=== PATIENT | female | born 1950 ===

== ENCOUNTER 2018-02-16 15:05 | Inpatient (IN) | payer MEDICARE, OTHER ==
[~2018-02-16] VITALS: Ht 152.4 cm; Wt 54.6 kg
[2018-02-16 16:04] VITALS: BP 134/85
[2018-02-16] MEDS ORDERED: MELO15TA23 PO (16:52)
[2018-02-16] MEDS ORDERED: SITA50TA PO (16:52)
[2018-02-16] MEDS ORDERED: ESTR1TAB13 PO (16:52)
[2018-02-16] MEDS ORDERED: LEVE10007 PO (16:52)
[2018-02-16] MEDS ORDERED: GABA600T2 PO (16:52)
[2018-02-16] MEDS ORDERED: CLON1TAB4 PO (16:52)
[2018-02-16] MEDS ORDERED: DULO60CA6 PO (16:52)
[2018-02-16] MEDS ORDERED: GABA800T2 PO (16:52)
[2018-02-16] MEDS ORDERED: CETI10CA PO (16:52)
[2018-02-16] MEDS ORDERED: ROPI0.5T PO (16:52)
[2018-02-16] MEDS ORDERED: BACL10TA PO (16:52)
[2018-02-16] MEDS ORDERED: MECL25TA3 PO (16:52)
[2018-02-16] MEDS ORDERED: ACET325T9 PO (16:52)
[2018-02-16] MEDS ORDERED: METF500T9 PO (16:52)
[2018-02-16] MEDS ORDERED: FLUT9.9S NS (16:52)
[2018-02-16] MEDS ORDERED: OMEP20TA63 PO (16:52)
[2018-02-16] MEDS ORDERED: SIMV20TA3 PO (16:52)
[2018-02-16] MEDS ORDERED: POLY17PO5 PO (16:52)
[2018-02-16] MEDS ORDERED: TOPI50TA8 PO (16:52)
[2018-02-16] MEDS ORDERED: POLYETHYLENE GLYCOL 3350 17 GM PACKET. PO PRN (17:00)
[2018-02-16] MEDS: GABAPENTIN 300 MG CAPSULE. PO SCH (17:00)
[2018-02-16] MEDS ORDERED: MAG HYDROX/AL HYDROX/SIMETH 30 ML ORAL.SUSP PO PRN (17:15)
[2018-02-16] MEDS ORDERED: MAGNESIUM HYDROXIDE 2,400 MG/30 ML ORAL.SUSP. PO PRN (17:15)
[2018-02-16] MEDS ORDERED: METHYL SALICYLATE/MENTHOL TOPICAL OINTMENT 29GM TUBE. TP PRN (17:15)
[2018-02-16 17:45] LABS: BASO % 1 % (0-3); EOS # 0.2 x10^3/uL (0.0-0.7); EOS % 3 % (0-3); HEMATOCRIT 38.9 % (36.0-47.0); HEMOGLOBIN 12.8 g/dL (12.0-15.5); LYMPH # 2.4 x10^3/uL (1.0-4.8); LYMPH % 37 % (24-48); MEAN CORPUSCULAR HEMOGLOBIN 30 pg (25-35); MEAN CORPUSCULAR HGB CONC 33 g/dL (31-37); MEAN CORPUSCULAR VOLUME 92 fL (79-100); MONO # 0.4 x10^3/uL (0.0-1.1); MONO % 6 % (0-9); NEUT # 3.6 x10^3uL (1.8-7.7); NEUT % 55 % (31-73); PLATELET COUNT 276 x10^3/uL (140-400); RED BLOOD COUNT 4.23 x10^6/uL (3.50-5.40); RED CELL DISTRIBUTION WIDTH 13.8 % (11.5-14.5); WHITE BLOOD COUNT 6.5 x10^3/uL (4.0-11.0)
[2018-02-16 17:56] LABS: ALBUMIN 3.6 g/dL (3.4-5.0); CALCIUM 8.9 mg/dL (8.5-10.1); CREATININE 1.4 mg/dL (0.6-1.0); GFR 37.6; MAGNESIUM 1.8 mg/dL (1.8-2.4); TOTAL BILIRUBIN 0.2 mg/dL (0.2-1.0); TOTAL PROTEIN 7.2 g/dL (6.4-8.2)
[2018-02-16] MEDS: levETIRAcetam 500 MG TABLET PO SCH (19:57)
[2018-02-16] MEDS: SIMVASTATIN 20 MG TABLET PO SCH (19:57)
[2018-02-16] MEDS: FLUTICASONE 50MCG/NASAL SPRAY 16GM BOTTLE. NS SCH (19:58)
[2018-02-16] MEDS: rOPINIRole 1 MG TABLET. PO SCH (19:58)
[2018-02-16] MEDS: GABAPENTIN 400 MG CAPSULE. PO SCH (19:58)
[2018-02-16] MEDS: MECLIZINE 12.5 MG TABLET. PO SCH (19:58)
[2018-02-16] MEDS: clonazePAM 1 MG TABLET PO SCH (19:58)
[2018-02-16] MEDS ORDERED: GABAPENTIN 300 MG CAPSULE. PO SCH (21:00)
[2018-02-17 06:23] VITALS: BP 121/76
[2018-02-17] MEDS: levETIRAcetam 500 MG TABLET PO SCH ×2 (07:29→20:11)
[2018-02-17] MEDS: rOPINIRole 1 MG TABLET. PO SCH ×3 (07:30→20:12)
[2018-02-17] MEDS: MECLIZINE 12.5 MG TABLET. PO SCH ×2 (07:32→20:11)
[2018-02-17] MEDS: GABAPENTIN 300 MG CAPSULE. PO SCH ×3 (07:32→18:01)
[2018-02-17] MEDS: DULoxetine HCL 60 MG CAPSULE.DR PO SCH (07:36)
[2018-02-17] MEDS: MELOXICAM 15 MG TABLET. PO SCH (07:36)
[2018-02-17] MEDS: LINAGLIPTIN 5 MG TABLET PO SCH (07:36)
[2018-02-17] MEDS: PANTOPRAZOLE 40 MG TABLET. PO SCH (07:36)
[2018-02-17] MEDS: TOPIRAMATE 25 MG TABLET. PO SCH (07:37)
[2018-02-17] MEDS: CETIRIZINE HCL 10 MG TABLET PO SCH (07:37)
[2018-02-17] MEDS: BACLOFEN 10 MG TABLET PO SCH (07:37)
[2018-02-17] MEDS: NORETHINDRONE ACET PO SCH (07:38)
[2018-02-17] MEDS: ESTRADIOL PO SCH (07:38)
[2018-02-17] MEDS: metFORMIN XR 500 MG TAB.ER.24H PO SCH (07:39)
[2018-02-17] MEDS: FLUTICASONE 50MCG/NASAL SPRAY 16GM BOTTLE. NS SCH ×2 (09:00→20:12)
[2018-02-17] MEDS: ACETAMINOPHEN 325 MG TABLET PO PRN ×2 (11:29→18:00)
[2018-02-17 12:08] LABS: THYROXINE 6.3 ug/dL (4.5-12.0)
[2018-02-17 16:37] VITALS: BP 151/82
[2018-02-17] MEDS: SIMVASTATIN 20 MG TABLET PO SCH (20:11)
[2018-02-17] MEDS: clonazePAM 1 MG TABLET PO SCH (20:11)
[2018-02-17] MEDS: GABAPENTIN 400 MG CAPSULE. PO SCH (20:12)
--- NOTE | 2018-02-17 21:24 | CONS ---
DATE OF CONSULTATION: 02/17/2018 REASON FOR CONSULTATION: Medical management. HISTORY OF PRESENT ILLNESS: The patient is a 67-year-old female patient, who was referred from [facility] Emergency Room where she has presented with suicidal ideation and a complaint of depression. She stated that she is sad and plans to kill herself, although she does not have any specific time being. By the time, she arrived there, she was in fact brought to the Emergency Room by police from the [facility]. She lives in [facility], who apparently her insurance will pay only for a room with a roommate and she could not have a private room on her own. She does not like her roommate and made this a suicidal threat. She was evaluated in the Emergency Room and she signed herself [facility] for [facility] stabilization. PAST MEDICAL HISTORY: Significant for trochanteric bursitis, chronic back pain, type 2 diabetes with diabetic peripheral neuropathy, degenerative joint disease, fibromyalgia, gastroesophageal reflux disease, hyperlipidemia, and rheumatoid arthritis. PAST SURGICAL HISTORY: Significant for esophagogastroduodenoscopy, left total hip arthroplasty, breast biopsy, jaw surgery, left wrist surgery, dilatation of the ureteral stricture and diskectomy as well as bilateral cataract extraction. FAMILY HISTORY: Her father is and known to have cerebrovascular accident, COPD, chronic kidney disease, Alzheimer's disease. Her mother and has also breast cancer, and Parkinson disease. SOCIAL HISTORY: She used to live alone in an apartment, walks with a walker. She apparently does not smoke, does not drink alcohol or recreational drugs. She has no children, but she has a cat according to her. ALLERGIES: She has no known drug allergies. MEDICATIONS: She is currently on following medications: She is on cetirizine 10 mg once a day, baclofen 10 mg daily, simvastatin 20 mg at bedtime, meloxicam 15 mg once a day, Tylenol 650 mg every 4 hours, clonazepam 1 mg at bedtime, gabapentin 800 mg at bedtime and gabapentin 600 mg 3 times a day and levetiracetam for Keppra 1500 mg twice a day, topiramate 50 mg once a day, duloxetine 60 mg daily, allopurinol 1.5 mg 3 times a day. She is on Flonase 2 sprays to each nostril twice a day, polyethylene glycol 17 grams daily p.r.n. for constipation, meclizine 25 mg p.o. b.i.d., omeprazole 40 mg once a day, estrogen for Activella. She is on metformin 1000 mg daily with breakfast, and Sitagliptin Phosphate 50 mg once a day. REVIEW OF SYSTEMS: The patient denied any blurring of vision. She has bilateral cataract extraction, but denied any glaucoma or macular degeneration. Denied any earache, tinnitus or sensorineural deafness. Denied any nosebleeds, stuffy nose or postnasal drip. Denied any sore throat, sore tongue, toothache, or difficulty swallowing. Denied any nausea, vomiting, diarrhea or constipation. Denied any hematemesis, melena or hematochezia. Denied any dysuria, frequency or hematuria. PHYSICAL EXAMINATION: GENERAL: When I examined her, she was resting slightly propped up in bed, in no apparent respiratory distress. No pallor, jaundice or cyanosis. No lymphadenopathy, no thyromegaly. No jugular venous distention. No limb edema. VITAL SIGNS: Her heart rate was 60, blood pressure was 121/76, temperature was 98.9, respiratory rate was 16, and oxygen saturation was 98%. HEAD, EYES, EARS, NOSE, AND THROAT: Showed she is normocephalic, atraumatic. NECK: Supple. HEART: Showed normal first and second heart sounds. No gallop, rub or murmur. CHEST: Clear to auscultation. No crepitation or rhonchi. ABDOMEN: Distended, soft, nontender. NEUROLOGIC: She is awake, alert, responding appropriately. All her cranial nerves intact. EXTREMITIES: She moves extremities without difficulty. LABORATORY DATA: Her lab work showed a white cell count of 6500, hemoglobin 13, hematocrit 39, MCV 92, and platelet count of 276,000. Her chemistry showed a serum sodium 141, potassium 4, chloride 110, bicarbonate 18, anion gap of 13, BUN 17, creatinine 1.4, estimated GFR was 37 mL per minute. Her glucose 141, calcium was 8.9, and magnesium was 1.8. Total bilirubin, AST, ALT, alkaline phosphatase were normal. Her total protein was 7.2, albumin 3.6. Her total T4 was 6.3 and total T3 was 98. ASSESSMENT AND PLAN: In summary, this is a 67-year-old female patient, a resident at [facility], who signed herself and she severely depressed and voiced suicidal ideation. She stated that she wants to kill herself, although she does not have a clear plan to do so. She is apparently known to have depression, fibromyalgia and mild dementia. She has multiple medical problems including type 2 diabetes, hypertension, and hyperlipidemia. She also has seizure disorder as well as diabetic peripheral neuropathy. All in all, the patient seemed to be medically stable. Her vital signs are within acceptable range. Her lab works are normal apart from slightly impaired kidney function. I would definitely continue with all her current medication and we will follow all the labs that are still pending at the time of this dictation and make any necessary recommendation. Thank you, Dr. Bardales for allowing me to participate in the care of this patient. PRINCESS NI MD DR: CORBY/noel JOB#: [id number] / [id number]
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
[2018-02-18 06:17] VITALS: BP 129/79
[2018-02-18] MEDS: TOPIRAMATE 25 MG TABLET. PO SCH (08:05)
[2018-02-18] MEDS: PANTOPRAZOLE 40 MG TABLET. PO SCH (08:06)
[2018-02-18] MEDS: levETIRAcetam 500 MG TABLET PO SCH ×2 (08:06→19:22)
[2018-02-18] MEDS: BACLOFEN 10 MG TABLET PO SCH (08:06)
[2018-02-18] MEDS: MECLIZINE 12.5 MG TABLET. PO SCH ×2 (08:06→19:22)
[2018-02-18] MEDS: rOPINIRole 1 MG TABLET. PO SCH ×3 (08:07→19:22)
[2018-02-18] MEDS: metFORMIN XR 500 MG TAB.ER.24H PO SCH (08:07)
[2018-02-18] MEDS: GABAPENTIN 300 MG CAPSULE. PO SCH ×3 (08:07→17:34)
[2018-02-18] MEDS: CETIRIZINE HCL 10 MG TABLET PO SCH (08:07)
[2018-02-18] MEDS: DULoxetine HCL 60 MG CAPSULE.DR PO SCH (08:07)
[2018-02-18] MEDS: LINAGLIPTIN 5 MG TABLET PO SCH (08:08)
[2018-02-18] MEDS: MELOXICAM 15 MG TABLET. PO SCH (08:18)
[2018-02-18] MEDS: FLUTICASONE 50MCG/NASAL SPRAY 16GM BOTTLE. NS SCH ×2 (08:19→19:25)
[2018-02-18] MEDS: NORETHINDRONE ACET PO SCH (09:00)
[2018-02-18] MEDS: ESTRADIOL PO SCH (09:00)
[2018-02-18 09:09] LABS: THYROID STIM HORMONE (TSH) 3.14 uIU/mL (0.358-3.740)
[2018-02-18] MEDS: ACETAMINOPHEN 325 MG TABLET PO PRN ×2 (11:14→19:23)
[2018-02-18 16:30] VITALS: BP 116/75
[2018-02-18] MEDS: GABAPENTIN 400 MG CAPSULE. PO SCH (19:21)
[2018-02-18] MEDS: SIMVASTATIN 20 MG TABLET PO SCH (19:21)
[2018-02-18] MEDS: clonazePAM 1 MG TABLET PO SCH (19:25)
[2018-02-18 23:11] LABS: HEMOGLOBIN A1C 7.3 % (4.8-5.6)
[2018-02-19 05:38] VITALS: BP 104/69
[2018-02-19] MEDS: ESTRADIOL PO SCH (09:00)
[2018-02-19] MEDS: NORETHINDRONE ACET PO SCH (09:00)
[2018-02-19] MEDS: metFORMIN XR 500 MG TAB.ER.24H PO SCH (09:47)
[2018-02-19] MEDS: DULoxetine HCL 60 MG CAPSULE.DR PO SCH (09:47)
[2018-02-19] MEDS: GABAPENTIN 300 MG CAPSULE. PO SCH ×3 (09:47→17:56)
[2018-02-19] MEDS: LINAGLIPTIN 5 MG TABLET PO SCH (09:48)
[2018-02-19] MEDS: rOPINIRole 1 MG TABLET. PO SCH ×3 (09:48→19:28)
[2018-02-19] MEDS: levETIRAcetam 500 MG TABLET PO SCH ×2 (09:48→19:27)
[2018-02-19] MEDS: MECLIZINE 12.5 MG TABLET. PO SCH ×2 (09:48→19:27)
[2018-02-19] MEDS: PANTOPRAZOLE 40 MG TABLET. PO SCH (09:49)
[2018-02-19] MEDS: MELOXICAM 15 MG TABLET. PO SCH (09:49)
[2018-02-19] MEDS: TOPIRAMATE 25 MG TABLET. PO SCH (09:49)
[2018-02-19] MEDS: BACLOFEN 10 MG TABLET PO SCH (09:49)
[2018-02-19] MEDS: CETIRIZINE HCL 10 MG TABLET PO SCH (09:49)
[2018-02-19] MEDS: FLUTICASONE 50MCG/NASAL SPRAY 16GM BOTTLE. NS SCH ×2 (09:50→19:26)
--- NOTE | 2018-02-19 10:44 | PDOC ---
Exam Note: Juan C Note: Please also refer to the separate dictated note~for this date of service dictated separately.~Patient seen individually. Discussed the patient with Nursing staff reviewed the chart.~Reviewed interim history and current functioning. Reviewed vital signs,~Labs/ Radiology~and current medications noted below. Continue current treatment with the changes noted in the dictated addendum note. This is a late entry for 02/18/2018 Assessment: Vital Signs: VS - Last 72 Hours, by Label Date Time Temp Pulse Resp B/P (MAP) Pulse Ox O2 Delivery O2 Flow Rate FiO2 02/19/18 05:38 98.2 61 18 104/69 (81) 97 02/18/18 16:30 97.4 61 18 116/75 (89) 98 Room Air 02/18/18 06:17 97.8 63 14 129/79 (96) 100 Room Air 02/17/18 16:37 98.0 70 16 151/82 (105) 97 02/17/18 06:23 98.9 60 16 121/76 (91) 98 Room Air 02/16/18 16:04 98.4 70 16 134/85 (101) 99 Room Air Vital Signs Date Time Temp Pulse Resp B/P (MAP) Pulse Ox O2 Delivery O2 Flow Rate FiO2 02/19/18 05:38 98.2 61 18 104/69 (81) 97 02/18/18 16:30 Room Air I&O Intake and Output 02/19/18 07:00 Intake Total 660 ml Balance 660 ml Intake Oral 660 ml # Bowel Movements 1 Current Medications: Meds: Current Medications Acetaminophen (Tylenol) 325 mg PRN Q4HRS PRN PO PAIN / TEMP Last administered on 02/18/18at 19:23; Start 02/16/18 at 16:15 Baclofen (Lioresal) 10 mg DAILY PO Last administered on 02/19/18at 09:49; Start 02/17/18 at 09:00 Cetirizine HCl (ZyrTEC) 10 mg DAILY PO Last administered on 02/19/18at 09:49; Start 02/17/18 at 09:00 Clonazepam (KlonoPIN) 1 mg QHS PO Last administered on 02/18/18at 19:25; Start 02/16/18 at 21:00 Duloxetine HCl (Cymbalta) 60 mg DAILY PO Last administered on 02/19/18 09:47 ; Start 02/17/18 at 09:00 Non-Formulary Medication (Estradiol/ Norethindrone Acet (Activella 0.5-0.1 Mg Tablet)) 1 tab DAILY PO ; Start 02/17/18 at 09:00; Status UNV Fluticasone Propionate (Flonase) 2 spray BID NS Last administered on 09:50; Start 02/16/18 at 21:00 Gabapentin (Neurontin) 600 mg TID PO ; Start 02/16/18 at 21:00; Stop 02/16/18 at 21:00; Status DC Gabapentin (Neurontin) 800 mg QHS PO Last administered on 02/18/18 19:21; Start 02/16/18 at 21:00 Levetiracetam (Keppra) 1,500 mg BID PO Last administered on 02/19/18 09:48; Start 02/16/18 at 21:00 Meclizine HCl (Antivert) 25 mg BID PO Last administered on 02/19/18 09:48; Start 02/16/18 at 21:00 Meloxicam (Mobic) 15 mg DAILY PO Last administered on 02/19/18 09:49; Start 02/17/18 at 09:00 Metformin HCl (Glucophage Xr) 1,000 mg DAILYWBKFT PO Last administered on 02/19 09:47; Start 02/17/18 at 08:00 Pantoprazole Sodium (Protonix) 40 mg DAILYAC PO Last administered on 09:49; Start 02/17/18 at 07:30 Polyethylene Glycol (miraLAX) 17 gm PRN DAILY PRN PO CONSTIPATION; Start 02/16 at 17:00 Ropinirole HCl (Requip) 1.5 mg TID PO Last administered on 02/19/18 09:48; Start 02/16/18 at 21:00 Simvastatin (Zocor) 20 mg HS PO Last administered on 02/18/18 19:21; Start 02/16/18 at 21:00 Linagliptin (Tradjenta) 5 mg DAILY PO Last administered on 02/19/18 09:48; Start 02/17/18 at 09:00 Topiramate (Topamax) 50 mg DAILY PO Last administered on 02/19/18at 09:49; Start 02/17/18 at 09:00 Gabapentin (Neurontin) 600 mg TID@0900,1300,1700 PO Last administered on at 09:47; Start 02/16/18 at 17:00 Multi-Ingredient Ointment (Analgesic [place]) 1 iesha PRN QID PRN TP MUSCLE PAIN; Start 02/16/18 at 17:15 Al Hydroxide/Mg Hydroxide (Mylanta Plus Xs) 15 ml PRN AFTMEALHC PRN PO DYSPEPSIA; Start 02/16/18 at 17:15 Magnesium Hydroxide (Milk Of Magnesia) 2,400 mg PRN QHS PRN PO CONSTIPATION; Start 02/16/18 at 17:15 Active Scripts Active Reported Miralax (Polyethylene Glycol 3350) 17 Gm Powd.pack 17 Gm PO PRN DAILY PRN Tylenol (Acetaminophen) 325 Mg Tablet 325 Mg PO PRN Q4HRS PRN Topiramate 50 Mg Tablet 50 Mg PO DAILY Januvia (Sitagliptin Phosphate) 50 Mg Tablet 50 Mg PO DAILY Simvastatin 20 Mg Tablet 20 Mg PO HS Requip (Ropinirole Hcl) 0.5 Mg Tablet 1.5 Mg PO TID Prilosec Otc (Omeprazole Magnesium) 20 Mg Tablet.dr 40 Mg PO DAILY Metformin Hcl Er (Metformin Hcl) 500 Mg Tab.er.24h 1,000 Mg PO DAILYWBKFT Meloxicam 15 Mg Tablet 15 Mg PO DAILY Meclizine Hcl 25 Mg Tablet 25 Mg PO BID Levetiracetam 1,000 Mg Tablet 1,500 Mg PO BID Gabapentin 600 Mg Tablet 600 Mg PO TID Gabapentin 800 Mg Tablet 800 Mg PO HS Flonase Allergy Relief (Fluticasone Propionate) 9.9 Ml [place].susp 2 Sprays NS BID Activella 0.5-0.1 Mg Tablet (Estradiol/Norethindrone Acet) 1 Each Tablet 1 Tab PO DAILY Cymbalta (Duloxetine Hcl) 60 Mg Capsule.dr 60 Mg PO DAILY Clonazepam 1 Mg Tablet 1 Mg PO HS Zyrtec (Cetirizine Hcl) 10 Mg Capsule 10 Mg PO DAILY Baclofen 10 Mg Tablet 10 Mg PO DAILY I have reviewed the current psychotropics carefully including drug interactions. Risk benefit ratio favors no change other than as noted in my dictated progress note. Diagnosis: Problems: (1) Impulse control disorder (2) Major depressive disorder, recurrent episode (3) Anxiety disorder NUBIA STILES MD Feb 19, 2018 10:44
[2018-02-19 16:10] VITALS: BP 108/69
[2018-02-19] MEDS: busPIRone 5 MG TABLET. PO SCH (17:56)
[2018-02-19] MEDS: SIMVASTATIN 20 MG TABLET PO SCH (19:27)
[2018-02-19] MEDS: GABAPENTIN 400 MG CAPSULE. PO SCH (19:28)
[2018-02-19] MEDS: clonazePAM 1 MG TABLET PO SCH (19:29)
[2018-02-20 06:06] VITALS: BP 116/71
[2018-02-20] MEDS: metFORMIN XR 500 MG TAB.ER.24H PO SCH (08:00)
[2018-02-20] MEDS: MECLIZINE 12.5 MG TABLET. PO SCH ×2 (08:01→19:43)
[2018-02-20] MEDS: MELOXICAM 15 MG TABLET. PO SCH (08:01)
[2018-02-20] MEDS: BACLOFEN 10 MG TABLET PO SCH (08:01)
[2018-02-20] MEDS: levETIRAcetam 500 MG TABLET PO SCH ×2 (08:02→19:46)
[2018-02-20] MEDS: busPIRone 5 MG TABLET. PO SCH ×2 (08:02→16:57)
[2018-02-20] MEDS: DULoxetine HCL 60 MG CAPSULE.DR PO SCH (08:03)
[2018-02-20] MEDS: PANTOPRAZOLE 40 MG TABLET. PO SCH (08:03)
[2018-02-20] MEDS: CETIRIZINE HCL 10 MG TABLET PO SCH (08:03)
[2018-02-20] MEDS: LINAGLIPTIN 5 MG TABLET PO SCH (08:03)
[2018-02-20] MEDS: rOPINIRole 1 MG TABLET. PO SCH ×3 (08:04→19:43)
[2018-02-20] MEDS: GABAPENTIN 300 MG CAPSULE. PO SCH ×3 (08:05→16:58)
[2018-02-20] MEDS: ESTRADIOL PO SCH (08:05)
[2018-02-20] MEDS: NORETHINDRONE ACET PO SCH (08:05)
[2018-02-20] MEDS: TOPIRAMATE 25 MG TABLET. PO SCH (08:05)
[2018-02-20] MEDS: FLUTICASONE 50MCG/NASAL SPRAY 16GM BOTTLE. NS SCH ×2 (08:06→19:42)
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
[2018-02-20] MEDS: ACETAMINOPHEN 325 MG TABLET PO PRN (12:46)
[2018-02-20 16:12] VITALS: BP 147/87
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
[2018-02-20] MEDS: SIMVASTATIN 20 MG TABLET PO SCH (19:43)
[2018-02-20] MEDS: GABAPENTIN 400 MG CAPSULE. PO SCH (19:43)
[2018-02-20] MEDS: clonazePAM 1 MG TABLET PO SCH (19:46)
--- NOTE | 2018-02-20 21:20 | PDOC ---
Exam Note: Jua nC Note: Late entry for DOS 02/19/2018. Please also refer to the separate dictated note~ for this date of service dictated separately.~Patient seen individually. Discussed the patient with Nursing staff reviewed the chart.~Reviewed interim history and current functioning. Reviewed vital signs,~Labs/ Radiology~and current medications noted below. Continue current treatment with the changes noted in the dictated addendum note Assessment: Vital Signs: VS - Last 72 Hours, by Label Date Time Temp Pulse Resp B/P (MAP) Pulse Ox O2 Delivery O2 Flow Rate FiO2 02/20/18 16:12 98.4 88 18 147/87 (107) 96 02/20/18 06:06 97.6 68 20 116/71 (86) 97 02/19/18 16:10 98.1 64 17 108/69 (82) 98 Room Air 02/19/18 05:38 98.2 61 18 104/69 (81) 97 02/18/18 16:30 97.4 61 18 116/75 (89) 98 Room Air 02/18/18 06:17 97.8 63 14 129/79 (96) 100 Room Air Vital Signs Date Time Temp Pulse Resp B/P (MAP) Pulse Ox O2 Delivery O2 Flow Rate FiO2 02/20/18 16:12 98.4 88 18 147/87 (107) 96 02/19/18 16:10 Room Air I&O Intake and Output 02/20/18 07:00 Intake Total 580 ml Balance 580 ml Intake Oral 580 ml Labs: Laboratory Tests Test 02/20/18 08:02 Glucose (Fingerstick) 132 mg/dL (70-99) H Current Medications: Meds: Current Medications Acetaminophen (Tylenol) 325 mg PRN Q4HRS PRN PO PAIN / TEMP Last administered on 02/20/18at 12:46; Start 02/16/18 at 16:15 Baclofen (Lioresal) 10 mg DAILY PO Last administered on 02/20/18at 08:01; Start 02/17/18 at 09:00 Cetirizine HCl (ZyrTEC) 10 mg DAILY PO Last administered on 02/20/18at 08:03; Start 02/17/18 at 09:00 Clonazepam (KlonoPIN) 1 mg QHS PO Last administered on 02/20/18at 19:46; Start 02/16/18 at 21:00 Duloxetine HCl (Cymbalta) 60 mg DAILY PO Last administered on 02/20/18 08:03 ; Start 02/17/18 at 09:00 Non-Formulary Medication (Estradiol/ Norethindrone Acet (Activella 0.5-0.1 Mg Tablet)) 1 tab DAILY PO ; Start 02/17/18 at 09:00; Status UNV Fluticasone Propionate (Flonase) 2 spray BID NS Last administered on 19:42; Start 02/16/18 at 21:00 Gabapentin (Neurontin) 600 mg TID PO ; Start 02/16/18 at 21:00; Stop 02/16/18 at 21:00; Status DC Gabapentin (Neurontin) 800 mg QHS PO Last administered on 02/20/18 19:43; Start 02/16/18 at 21:00 Levetiracetam (Keppra) 1,500 mg BID PO Last administered on 02/20/18 19:46; Start 02/16/18 at 21:00 Meclizine HCl (Antivert) 25 mg BID PO Last administered on 02/20/18 19:43; Start 02/16/18 at 21:00 Meloxicam (Mobic) 15 mg DAILY PO Last administered on 02/20/18 08:01; Start 02/17/18 at 09:00 Metformin HCl (Glucophage Xr) 1,000 mg DAILYWBKFT PO Last administered on 02/20 08:00; Start 02/17/18 at 08:00 Pantoprazole Sodium (Protonix) 40 mg DAILYAC PO Last administered on 08:03; Start 02/17/18 at 07:30 Polyethylene Glycol (miraLAX) 17 gm PRN DAILY PRN PO CONSTIPATION; Start 02/16 at 17:00 Ropinirole HCl (Requip) 1.5 mg TID PO Last administered on 02/20/18 19:43; Start 02/16/18 at 21:00 Simvastatin (Zocor) 20 mg HS PO Last administered on 02/20/18 19:43; Start 02/16/18 at 21:00 Linagliptin (Tradjenta) 5 mg DAILY PO Last administered on 10/24/18at 08:03; Start 02/17/18 at 09:00 Topiramate (Topamax) 50 mg DAILY PO Last administered on 02/20/18at 08:05; Start 02/17/18 at 09:00 Gabapentin (Neurontin) 600 mg TID@0900,1300,1700 PO Last administered on at 16:58; Start 02/16/18 at 17:00 Multi-Ingredient Ointment (Analgesic [place]) 1 iesha PRN QID PRN TP MUSCLE PAIN; Start 02/16/18 at 17:15 Al Hydroxide/Mg Hydroxide (Mylanta Plus Xs) 15 ml PRN AFTMEALHC PRN PO DYSPEPSIA; Start 02/16/18 at 17:15 Magnesium Hydroxide (Milk Of Magnesia) 2,400 mg PRN QHS PRN PO CONSTIPATION; Start 02/16/18 at 17:15 Buspirone HCl (Buspar) 5 mg BID@0900,1700 PO Last administered on 02/20/18at 16 :57; Start 02/19/18 at 17:00 Active Scripts Active Reported Miralax (Polyethylene Glycol 3350) 17 Gm Powd.pack 17 Gm PO PRN DAILY PRN Tylenol (Acetaminophen) 325 Mg Tablet 325 Mg PO PRN Q4HRS PRN Topiramate 50 Mg Tablet 50 Mg PO DAILY Januvia (Sitagliptin Phosphate) 50 Mg Tablet 50 Mg PO DAILY Simvastatin 20 Mg Tablet 20 Mg PO HS Requip (Ropinirole Hcl) 0.5 Mg Tablet 1.5 Mg PO TID Prilosec Otc (Omeprazole Magnesium) 20 Mg Tablet.dr 40 Mg PO DAILY Metformin Hcl Er (Metformin Hcl) 500 Mg Tab.er.24h 1,000 Mg PO DAILYWBKFT Meloxicam 15 Mg Tablet 15 Mg PO DAILY Meclizine Hcl 25 Mg Tablet 25 Mg PO BID Levetiracetam 1,000 Mg Tablet 1,500 Mg PO BID Gabapentin 600 Mg Tablet 600 Mg PO TID Gabapentin 800 Mg Tablet 800 Mg PO HS Flonase Allergy Relief (Fluticasone Propionate) 9.9 Ml [place].susp 2 Sprays NS BID Activella 0.5-0.1 Mg Tablet (Estradiol/Norethindrone Acet) 1 Each Tablet 1 Tab PO DAILY Cymbalta (Duloxetine Hcl) 60 Mg Capsule.dr 60 Mg PO DAILY Clonazepam 1 Mg Tablet 1 Mg PO HS Zyrtec (Cetirizine Hcl) 10 Mg Capsule 10 Mg PO DAILY Baclofen 10 Mg Tablet 10 Mg PO DAILY I have reviewed the current psychotropics carefully including drug interactions. Risk benefit ratio favors no change other than as noted in my dictated progress note. Diagnosis: Problems: (1) Anxiety disorder (2) Major depressive disorder, recurrent episode (3) Impulse control disorder NUBIA STILES MD Feb 20, 2018 21:20
--- NOTE | 2018-02-20 23:28 | PDOC ---
Exam Note: Juan C Note: Please also refer to the separate dictated note~for this date of service dictated separately.~Patient seen individually. Discussed the patient with Nursing staff reviewed the chart.~Reviewed interim history and current functioning. Reviewed vital signs,~Labs/ Radiology~and current medications noted below. Continue current treatment with the changes noted in the dictated addendum note Assessment: Vital Signs: Vital Signs Date Time Temp Pulse Resp B/P (MAP) Pulse Ox O2 Delivery O2 Flow Rate FiO2 02/20/18 16:12 98.4 88 18 147/87 (107) 96 02/19/18 16:10 Room Air I&O Intake and Output 02/20/18 07:00 Intake Total 580 ml Balance 580 ml Intake Oral 580 ml Labs: Laboratory Tests Test 02/20/18 08:02 Glucose (Fingerstick) 132 mg/dL (70-99) H Current Medications: Meds: Current Medications Acetaminophen (Tylenol) 325 mg PRN Q4HRS PRN PO PAIN / TEMP Last administered on 02/20/18 12:46; Start 02/16/18 at 16:15 Baclofen (Lioresal) 10 mg DAILY PO Last administered on 02/20/18at 08:01; Start 02/17/18 at 09:00 Cetirizine HCl (ZyrTEC) 10 mg DAILY PO Last administered on 02/20/18at 08:03; Start 02/17/18 at 09:00 Clonazepam (KlonoPIN) 1 mg QHS PO Last administered on 02/20/18at 19:46; Start 02/16/18 at 21:00 Duloxetine HCl (Cymbalta) 60 mg DAILY PO Last administered on 02/20/18at 08:03 ; Start 02/17/18 at 09:00 Non-Formulary Medication (Estradiol/ Norethindrone Acet (Activella 0.5-0.1 Mg Tablet)) 1 tab DAILY PO ; Start 02/17/18 at 09:00; Status UNV Fluticasone Propionate (Flonase) 2 spray BID NS Last administered on at 19:42; Start 02/16/18 at 21:00 Gabapentin (Neurontin) 600 mg TID PO ; Start 02/16/18 at 21:00; Stop 02/16/18 at 21:00; Status DC Gabapentin (Neurontin) 800 mg QHS PO Last administered on 02/20/18 19:43; Start 02/16/18 at 21:00 Levetiracetam (Keppra) 1,500 mg BID PO Last administered on 02/20/18 19:46; Start 02/16/18 at 21:00 Meclizine HCl (Antivert) 25 mg BID PO Last administered on 02/20/18 19:43; Start 02/16/18 at 21:00 Meloxicam (Mobic) 15 mg DAILY PO Last administered on 02/20/18 08:01; Start 02/17/18 at 09:00 Metformin HCl (Glucophage Xr) 1,000 mg DAILYWBKFT PO Last administered on 02/20 08:00; Start 02/17/18 at 08:00 Pantoprazole Sodium (Protonix) 40 mg DAILYAC PO Last administered on 08:03; Start 02/17/18 at 07:30 Polyethylene Glycol (miraLAX) 17 gm PRN DAILY PRN PO CONSTIPATION; Start 02/16 at 17:00 Ropinirole HCl (Requip) 1.5 mg TID PO Last administered on 02/20/18 19:43; Start 02/16/18 at 21:00 Simvastatin (Zocor) 20 mg HS PO Last administered on 02/20/18 19:43; Start 02/16/18 at 21:00 Linagliptin (Tradjenta) 5 mg DAILY PO Last administered on 02/20/18 08:03; Start 02/17/18 at 09:00 Topiramate (Topamax) 50 mg DAILY PO Last administered on 02/20/18 08:05; Start 02/17/18 at 09:00 Gabapentin (Neurontin) 600 mg TID@0900,1300,1700 PO Last administered on 16:58; Start 02/16/18 at 17:00 Multi-Ingredient Ointment (Analgesic [place]) 1 iesha PRN QID PRN TP MUSCLE PAIN; Start 02/16/18 at 17:15 Al Hydroxide/Mg Hydroxide (Mylanta Plus Xs) 15 ml PRN AFTMEALHC PRN PO DYSPEPSIA; Start 02/16/18 at 17:15 Magnesium Hydroxide (Milk Of Magnesia) 2,400 mg PRN QHS PRN PO CONSTIPATION; Start 02/16/18 at 17:15 Buspirone HCl (Buspar) 5 mg BID@0900,1700 PO Last administered on 02/20/18at 16 :57; Start 02/19/18 at 17:00 Active Scripts Active Reported Miralax (Polyethylene Glycol 3350) 17 Gm Powd.pack 17 Gm PO PRN DAILY PRN Tylenol (Acetaminophen) 325 Mg Tablet 325 Mg PO PRN Q4HRS PRN Topiramate 50 Mg Tablet 50 Mg PO DAILY Januvia (Sitagliptin Phosphate) 50 Mg Tablet 50 Mg PO DAILY Simvastatin 20 Mg Tablet 20 Mg PO HS Requip (Ropinirole Hcl) 0.5 Mg Tablet 1.5 Mg PO TID Prilosec Otc (Omeprazole Magnesium) 20 Mg Tablet.dr 40 Mg PO DAILY Metformin Hcl Er (Metformin Hcl) 500 Mg Tab.er.24h 1,000 Mg PO DAILYWBKFT Meloxicam 15 Mg Tablet 15 Mg PO DAILY Meclizine Hcl 25 Mg Tablet 25 Mg PO BID Levetiracetam 1,000 Mg Tablet 1,500 Mg PO BID Gabapentin 600 Mg Tablet 600 Mg PO TID Gabapentin 800 Mg Tablet 800 Mg PO HS Flonase Allergy Relief (Fluticasone Propionate) 9.9 Ml [place].susp 2 Sprays NS BID Activella 0.5-0.1 Mg Tablet (Estradiol/Norethindrone Acet) 1 Each Tablet 1 Tab PO DAILY Cymbalta (Duloxetine Hcl) 60 Mg Capsule.dr 60 Mg PO DAILY Clonazepam 1 Mg Tablet 1 Mg PO HS Zyrtec (Cetirizine Hcl) 10 Mg Capsule 10 Mg PO DAILY Baclofen 10 Mg Tablet 10 Mg PO DAILY I have reviewed the current psychotropics carefully including drug interactions. Risk benefit ratio favors no change other than as noted in my dictated progress note. Diagnosis: Problems: (1) Anxiety disorder (2) Major depressive disorder, recurrent episode (3) Impulse control disorder NUBIA STILES MD Feb 20, 2018 23:28
--- NOTE | 2018-02-20 23:46 | PN ---
DATE: 02/19/2018 PSYCHIATRIC PROGRESS NOTE This late entry 02/19/2018 covers elements not covered in my initial note. SUBJECTIVE: Discussed with social service staff earlier in the day with nursing staff on 2 or 3 occasions as the patient continues to want to leave against medical advice. She denies active suicidal ideation. At the end of the day, no transportation could be obtained and contact has been made with her family to help affect this. She slept 6-1/2 hours previous evening, remains somewhat anxious, withdrawn, still depressed, but again denies suicidal ideation. REVIEW OF SYSTEMS: No CV, , pulmonary, eye, ENT system symptoms on review. MENTAL STATUS EXAM: Reasonably oriented. Speech is coherent, abstraction fair. Computation, able to do one step serial sevens. No suicidal or homicidal ideation, remains somewhat anxious, withdrawn. LABORATORY DATA: Reviewed. IMPRESSION: Major depressive disorder in partial remission; anxiety disorder, unspecified. PLAN: Maintain Cymbalta 60 mg a day. She is on Keppra 1500 b.i.d. for seizures, Klonopin 1 mg at bedtime, start BuSpar 5 mg twice a day for her anxiety. Adjust further as clinically indicated. NUBIA STILES MD DR: KATHERINE/noel JOB#: [id number] / [id number]
[2018-02-21 06:20] VITALS: BP 151/85
[2018-02-21] MEDS: FLUTICASONE 50MCG/NASAL SPRAY 16GM BOTTLE. NS SCH ×2 (08:16→20:01)
[2018-02-21] MEDS: levETIRAcetam 500 MG TABLET PO SCH ×2 (08:16→20:03)
[2018-02-21] MEDS: MECLIZINE 12.5 MG TABLET. PO SCH ×2 (08:16→20:04)
[2018-02-21] MEDS: GABAPENTIN 300 MG CAPSULE. PO SCH ×3 (08:17→17:12)
[2018-02-21] MEDS: metFORMIN XR 500 MG TAB.ER.24H PO SCH (08:17)
[2018-02-21] MEDS: LINAGLIPTIN 5 MG TABLET PO SCH (08:17)
[2018-02-21] MEDS: TOPIRAMATE 25 MG TABLET. PO SCH (08:17)
[2018-02-21] MEDS: BACLOFEN 10 MG TABLET PO SCH (08:17)
[2018-02-21] MEDS: rOPINIRole 1 MG TABLET. PO SCH ×3 (08:17→20:02)
[2018-02-21] MEDS: busPIRone 5 MG TABLET. PO SCH ×2 (08:17→17:11)
[2018-02-21] MEDS: DULoxetine HCL 60 MG CAPSULE.DR PO SCH (08:18)
[2018-02-21] MEDS: PANTOPRAZOLE 40 MG TABLET. PO SCH (08:18)
[2018-02-21] MEDS: MELOXICAM 15 MG TABLET. PO SCH (08:18)
[2018-02-21] MEDS: CETIRIZINE HCL 10 MG TABLET PO SCH (08:18)
[2018-02-21] MEDS: NORETHINDRONE ACET PO SCH (08:20)
[2018-02-21] MEDS: ACETAMINOPHEN 325 MG TABLET PO PRN ×2 (08:20→20:14)
[2018-02-21] MEDS: ESTRADIOL PO SCH (08:20)
[2018-02-21 16:13] VITALS: BP 108/70
[2018-02-21] MEDS: SIMVASTATIN 20 MG TABLET PO SCH (20:01)
[2018-02-21] MEDS: GABAPENTIN 400 MG CAPSULE. PO SCH (20:02)
[2018-02-21] MEDS: clonazePAM 1 MG TABLET PO SCH (20:05)
--- NOTE | 2018-02-21 23:26 | PDOC ---
Exam Note: Juan C Note: Please also refer to the separate dictated note~for this date of service dictated separately.~Patient seen individually. Discussed the patient with Nursing staff reviewed the chart.~Reviewed interim history and current functioning. Reviewed vital signs,~Labs/ Radiology~and current medications noted below. Continue current treatment with the changes noted in the dictated addendum note Assessment: Vital Signs: Vital Signs Date Time Temp Pulse Resp B/P (MAP) Pulse Ox O2 Delivery O2 Flow Rate FiO2 02/21/18 16:13 97.8 64 18 108/70 (83) 98 Room Air I&O Intake and Output 02/21/18 07:00 Intake Total 960 ml Balance 960 ml Intake Oral 960 ml Labs: Laboratory Tests Test 02/21/18 07:59 Glucose (Fingerstick) 122 mg/dL (70-99) H Current Medications: Meds: Current Medications Acetaminophen (Tylenol) 325 mg PRN Q4HRS PRN PO PAIN / TEMP Last administered on 02/21/18at 20:14; Start 02/16/18 at 16:15 Baclofen (Lioresal) 10 mg DAILY PO Last administered on 02/21/18at 08:17; Start 02/17/18 at 09:00 Cetirizine HCl (ZyrTEC) 10 mg DAILY PO Last administered on 02/21/18at 08:18; Start 02/17/18 at 09:00 Clonazepam (KlonoPIN) 1 mg QHS PO Last administered on 02/21/18at 20:05; Start 02/16/18 at 21:00 Duloxetine HCl (Cymbalta) 60 mg DAILY PO Last administered on 02/21/18at 08:18 ; Start 02/17/18 at 09:00 Non-Formulary Medication (Estradiol/ Norethindrone Acet (Activella 0.5-0.1 Mg Tablet)) 1 tab DAILY PO ; Start 02/17/18 at 09:00; Status UNV Fluticasone Propionate (Flonase) 2 spray BID NS Last administered on at 20:01; Start 02/16/18 at 21:00 Gabapentin (Neurontin) 600 mg TID PO ; Start 02/16/18 at 21:00; Stop 02/16/18 at 21:00; Status DC Gabapentin (Neurontin) 800 mg QHS PO Last administered on 02/21/18 20:02; Start 02/16/18 at 21:00 Levetiracetam (Keppra) 1,500 mg BID PO Last administered on 02/21/18 20:03; Start 02/16/18 at 21:00 Meclizine HCl (Antivert) 25 mg BID PO Last administered on 02/21/18 20:04; Start 02/16/18 at 21:00 Meloxicam (Mobic) 15 mg DAILY PO Last administered on 02/21/18 08:18; Start 02/17/18 at 09:00 Metformin HCl (Glucophage Xr) 1,000 mg DAILYWBKFT PO Last administered on 02/21 08:17; Start 02/17/18 at 08:00 Pantoprazole Sodium (Protonix) 40 mg DAILYAC PO Last administered on 08:18; Start 02/17/18 at 07:30 Polyethylene Glycol (miraLAX) 17 gm PRN DAILY PRN PO CONSTIPATION; Start 02/16 at 17:00 Ropinirole HCl (Requip) 1.5 mg TID PO Last administered on 02/21/18 20:02; Start 02/16/18 at 21:00 Simvastatin (Zocor) 20 mg HS PO Last administered on 02/21/18 20:01; Start 02/16/18 at 21:00 Linagliptin (Tradjenta) 5 mg DAILY PO Last administered on 02/21/18 08:17; Start 02/17/18 at 09:00 Topiramate (Topamax) 50 mg DAILY PO Last administered on 02/21/18 08:17; Start 02/17/18 at 09:00 Gabapentin (Neurontin) 600 mg TID@0900,1300,1700 PO Last administered on 17:12; Start 02/16/18 at 17:00 Multi-Ingredient Ointment (Analgesic [place]) 1 iesha PRN QID PRN TP MUSCLE PAIN; Start 02/16/18 at 17:15 Al Hydroxide/Mg Hydroxide (Mylanta Plus Xs) 15 ml PRN AFTMEALHC PRN PO DYSPEPSIA; Start 02/16/18 at 17:15 Magnesium Hydroxide (Milk Of Magnesia) 2,400 mg PRN QHS PRN PO CONSTIPATION; Start 02/16/18 at 17:15 Buspirone HCl (Buspar) 5 mg BID@0900,1700 PO Last administered on 02/21/18at 17 :11; Start 02/19/18 at 17:00 Active Scripts Active Reported Miralax (Polyethylene Glycol 3350) 17 Gm Powd.pack 17 Gm PO PRN DAILY PRN Tylenol (Acetaminophen) 325 Mg Tablet 325 Mg PO PRN Q4HRS PRN Topiramate 50 Mg Tablet 50 Mg PO DAILY Januvia (Sitagliptin Phosphate) 50 Mg Tablet 50 Mg PO DAILY Simvastatin 20 Mg Tablet 20 Mg PO HS Requip (Ropinirole Hcl) 0.5 Mg Tablet 1.5 Mg PO TID Prilosec Otc (Omeprazole Magnesium) 20 Mg Tablet.dr 40 Mg PO DAILY Metformin Hcl Er (Metformin Hcl) 500 Mg Tab.er.24h 1,000 Mg PO DAILYWBKFT Meloxicam 15 Mg Tablet 15 Mg PO DAILY Meclizine Hcl 25 Mg Tablet 25 Mg PO BID Levetiracetam 1,000 Mg Tablet 1,500 Mg PO BID Gabapentin 600 Mg Tablet 600 Mg PO TID Gabapentin 800 Mg Tablet 800 Mg PO HS Flonase Allergy Relief (Fluticasone Propionate) 9.9 Ml [place].susp 2 Sprays NS BID Activella 0.5-0.1 Mg Tablet (Estradiol/Norethindrone Acet) 1 Each Tablet 1 Tab PO DAILY Cymbalta (Duloxetine Hcl) 60 Mg Capsule.dr 60 Mg PO DAILY Clonazepam 1 Mg Tablet 1 Mg PO HS Zyrtec (Cetirizine Hcl) 10 Mg Capsule 10 Mg PO DAILY Baclofen 10 Mg Tablet 10 Mg PO DAILY I have reviewed the current psychotropics carefully including drug interactions. Risk benefit ratio favors no change other than as noted in my dictated progress note. Diagnosis: Problems: (1) Anxiety disorder (2) Major depressive disorder, recurrent episode (3) Impulse control disorder NUBIA STILES MD Feb 21, 2018 23:26
[2018-02-22 05:46] VITALS: BP 121/78
[2018-02-22] MEDS: metFORMIN XR 500 MG TAB.ER.24H PO SCH (07:36)
[2018-02-22] MEDS: rOPINIRole 1 MG TABLET. PO SCH ×3 (07:38→21:04)
[2018-02-22] MEDS: TOPIRAMATE 25 MG TABLET. PO SCH (07:38)
[2018-02-22] MEDS: GABAPENTIN 300 MG CAPSULE. PO SCH ×3 (07:38→18:13)
[2018-02-22] MEDS: LINAGLIPTIN 5 MG TABLET PO SCH (07:39)
[2018-02-22] MEDS: CETIRIZINE HCL 10 MG TABLET PO SCH (07:39)
[2018-02-22] MEDS: BACLOFEN 10 MG TABLET PO SCH (07:39)
[2018-02-22] MEDS: MELOXICAM 15 MG TABLET. PO SCH (07:39)
[2018-02-22] MEDS: DULoxetine HCL 60 MG CAPSULE.DR PO SCH (07:40)
[2018-02-22] MEDS: busPIRone 5 MG TABLET. PO SCH ×2 (07:40→18:13)
[2018-02-22] MEDS: MECLIZINE 12.5 MG TABLET. PO SCH ×2 (07:40→21:04)
[2018-02-22] MEDS: levETIRAcetam 500 MG TABLET PO SCH ×2 (07:40→21:05)
[2018-02-22] MEDS: PANTOPRAZOLE 40 MG TABLET. PO SCH (07:40)
[2018-02-22] MEDS: FLUTICASONE 50MCG/NASAL SPRAY 16GM BOTTLE. NS SCH ×2 (07:41→21:08)
[2018-02-22] MEDS: NORETHINDRONE ACET PO SCH (09:00)
[2018-02-22] MEDS: ESTRADIOL PO SCH (09:00)
[2018-02-22 15:51] VITALS: BP 144/84
[2018-02-22] MEDS: ACETAMINOPHEN 325 MG TABLET PO PRN ×2 (18:13→21:36)
[2018-02-22] MEDS: SIMVASTATIN 20 MG TABLET PO SCH (21:04)
[2018-02-22] MEDS: GABAPENTIN 400 MG CAPSULE. PO SCH (21:04)
[2018-02-22] MEDS: clonazePAM 1 MG TABLET PO SCH (21:04)
--- NOTE | 2018-02-22 21:09 | PN ---
DATE: 02/20/2018 PSYCHIATRIC PROGRESS NOTE This late entry 02/20/2018 covers elements not covered in my initial note. SUBJECTIVE: I met with the patient in the evening. The patient slept 7-3/4 hours previous evening. The patient remains quite withdrawn, wanting to leave AMA, and asked the nursing staff that she can leave AMA so long as transportation is arranged back to her assisted living and this is being arranged, but not yet done. She remains somewhat anxious, obsessive, but no suicidal ideation noted. REVIEW OF SYSTEMS: Ambulation impaired with walker. No CV, , pulmonary, eye system symptoms on review. MENTAL STATUS EXAM: Reasonably oriented. Speech is coherent, abstraction fair, computation impaired, language function intact, attention span short. Mood and affect somewhat withdrawn. No active suicidal ideation. LABORATORY DATA: Reviewed. IMPRESSION: Unchanged from initial note. PLAN: Add BuSpar 5 mg twice a day for anxiety. Maintain Keppra for seizures, Klonopin, and Cymbalta. MAN Allison STILES MD DR: KATHERINE/noel JOB#: [id number] / [id number]
--- NOTE | 2018-02-22 23:41 | PDOC ---
Exam Note: Juan C Note: Please also refer to the separate dictated note~for this date of service dictated separately.~Patient seen individually. Discussed the patient with Nursing staff reviewed the chart.~Reviewed interim history and current functioning. Reviewed vital signs,~Labs/ Radiology~and current medications noted below. Continue current treatment with the changes noted in the dictated addendum note Assessment: Vital Signs: Vital Signs Date Time Temp Pulse Resp B/P (MAP) Pulse Ox O2 Delivery O2 Flow Rate FiO2 02/22/18 15:51 97.8 67 18 144/84 (104) 96 Room Air I&O Intake and Output 02/22/18 07:00 Intake Total 960 ml Balance 960 ml Intake Oral 960 ml Labs: Laboratory Tests Test 02/22/18 07:32 Glucose (Fingerstick) 134 mg/dL (70-99) H Current Medications: Meds: Current Medications Acetaminophen (Tylenol) 325 mg PRN Q4HRS PRN PO PAIN / TEMP Last administered on 02/22/18at 21:36; Start 02/16/18 at 16:15 Baclofen (Lioresal) 10 mg DAILY PO Last administered on 02/22/18at 07:39; Start 02/17/18 at 09:00 Cetirizine HCl (ZyrTEC) 10 mg DAILY PO Last administered on 02/22/18at 07:39; Start 02/17/18 at 09:00 Clonazepam (KlonoPIN) 1 mg QHS PO Last administered on 02/22/18at 21:04; Start 02/16/18 at 21:00 Duloxetine HCl (Cymbalta) 60 mg DAILY PO Last administered on 02/22/18at 07:40 ; Start 02/17/18 at 09:00 Non-Formulary Medication (Estradiol/ Norethindrone Acet (Activella 0.5-0.1 Mg Tablet)) 1 tab DAILY PO ; Start 02/17/18 at 09:00; Status UNV Fluticasone Propionate (Flonase) 2 spray BID NS Last administered on at 21:08; Start 02/16/18 at 21:00 Gabapentin (Neurontin) 600 mg TID PO ; Start 02/16/18 at 21:00; Stop 02/16/18 at 21:00; Status DC Gabapentin (Neurontin) 800 mg QHS PO Last administered on 02/22/18 21:04; Start 02/16/18 at 21:00 Levetiracetam (Keppra) 1,500 mg BID PO Last administered on 02/22/18 21:05; Start 02/16/18 at 21:00 Meclizine HCl (Antivert) 25 mg BID PO Last administered on 02/22/18 21:04; Start 02/16/18 at 21:00 Meloxicam (Mobic) 15 mg DAILY PO Last administered on 02/22/18 07:39; Start 02/17/18 at 09:00 Metformin HCl (Glucophage Xr) 1,000 mg DAILYWBKFT PO Last administered on 02/22 07:36; Start 02/17/18 at 08:00 Pantoprazole Sodium (Protonix) 40 mg DAILYAC PO Last administered on 07:40; Start 02/17/18 at 07:30 Polyethylene Glycol (miraLAX) 17 gm PRN DAILY PRN PO CONSTIPATION; Start 02/16 at 17:00 Ropinirole HCl (Requip) 1.5 mg TID PO Last administered on 02/22/18 21:04; Start 02/16/18 at 21:00 Simvastatin (Zocor) 20 mg HS PO Last administered on 02/22/18 21:04; Start 02/16/18 at 21:00 Linagliptin (Tradjenta) 5 mg DAILY PO Last administered on 02/22/18 07:39; Start 02/17/18 at 09:00 Topiramate (Topamax) 50 mg DAILY PO Last administered on 02/22/18at 07:38; Start 02/17/18 at 09:00 Gabapentin (Neurontin) 600 mg TID@0900,1300,1700 PO Last administered on at 18:13; Start 02/16/18 at 17:00 Multi-Ingredient Ointment (Analgesic [place]) 1 iesha PRN QID PRN TP MUSCLE PAIN; Start 02/16/18 at 17:15 Al Hydroxide/Mg Hydroxide (Mylanta Plus Xs) 15 ml PRN AFTMEALHC PRN PO DYSPEPSIA; Start 02/16/18 at 17:15 Magnesium Hydroxide (Milk Of Magnesia) 2,400 mg PRN QHS PRN PO CONSTIPATION; Start 02/16/18 at 17:15 Buspirone HCl (Buspar) 5 mg BID@0900,1700 PO Last administered on 02/22/18at 18 :13; Start 02/19/18 at 17:00 Active Scripts Active Reported Miralax (Polyethylene Glycol 3350) 17 Gm Powd.pack 17 Gm PO PRN DAILY PRN Tylenol (Acetaminophen) 325 Mg Tablet 325 Mg PO PRN Q4HRS PRN Topiramate 50 Mg Tablet 50 Mg PO DAILY Januvia (Sitagliptin Phosphate) 50 Mg Tablet 50 Mg PO DAILY Simvastatin 20 Mg Tablet 20 Mg PO HS Requip (Ropinirole Hcl) 0.5 Mg Tablet 1.5 Mg PO TID Prilosec Otc (Omeprazole Magnesium) 20 Mg Tablet.dr 40 Mg PO DAILY Metformin Hcl Er (Metformin Hcl) 500 Mg Tab.er.24h 1,000 Mg PO DAILYWBKFT Meloxicam 15 Mg Tablet 15 Mg PO DAILY Meclizine Hcl 25 Mg Tablet 25 Mg PO BID Levetiracetam 1,000 Mg Tablet 1,500 Mg PO BID Gabapentin 600 Mg Tablet 600 Mg PO TID Gabapentin 800 Mg Tablet 800 Mg PO HS Flonase Allergy Relief (Fluticasone Propionate) 9.9 Ml [place].susp 2 Sprays NS BID Activella 0.5-0.1 Mg Tablet (Estradiol/Norethindrone Acet) 1 Each Tablet 1 Tab PO DAILY Cymbalta (Duloxetine Hcl) 60 Mg Capsule.dr 60 Mg PO DAILY Clonazepam 1 Mg Tablet 1 Mg PO HS Zyrtec (Cetirizine Hcl) 10 Mg Capsule 10 Mg PO DAILY Baclofen 10 Mg Tablet 10 Mg PO DAILY I have reviewed the current psychotropics carefully including drug interactions. Risk benefit ratio favors no change other than as noted in my dictated progress note. Diagnosis: Problems: (1) Anxiety disorder (2) Major depressive disorder, recurrent episode (3) Impulse control disorder NUBIA STILES MD Feb 22, 2018 23:41
[2018-02-23 06:19] VITALS: BP 130/76
[2018-02-23] MEDS: NORETHINDRONE ACET PO SCH (09:00)
[2018-02-23] MEDS: ESTRADIOL PO SCH (09:00)
[2018-02-23] MEDS: levETIRAcetam 500 MG TABLET PO SCH ×2 (10:32→20:07)
[2018-02-23] MEDS: BACLOFEN 10 MG TABLET PO SCH (10:32)
[2018-02-23] MEDS: metFORMIN XR 500 MG TAB.ER.24H PO SCH (10:32)
[2018-02-23] MEDS: MELOXICAM 15 MG TABLET. PO SCH (10:33)
[2018-02-23] MEDS: GABAPENTIN 300 MG CAPSULE. PO SCH ×3 (10:33→17:57)
[2018-02-23] MEDS: LINAGLIPTIN 5 MG TABLET PO SCH (10:33)
[2018-02-23] MEDS: DULoxetine HCL 60 MG CAPSULE.DR PO SCH (10:33)
[2018-02-23] MEDS: CETIRIZINE HCL 10 MG TABLET PO SCH (10:33)
[2018-02-23] MEDS: MECLIZINE 12.5 MG TABLET. PO SCH ×2 (10:34→20:07)
[2018-02-23] MEDS: rOPINIRole 1 MG TABLET. PO SCH ×3 (10:34→20:08)
[2018-02-23] MEDS: TOPIRAMATE 25 MG TABLET. PO SCH (10:34)
[2018-02-23] MEDS: PANTOPRAZOLE 40 MG TABLET. PO SCH (10:35)
[2018-02-23] MEDS: FLUTICASONE 50MCG/NASAL SPRAY 16GM BOTTLE. NS SCH ×2 (10:39→20:08)
[2018-02-23] MEDS: ACETAMINOPHEN 325 MG TABLET PO PRN ×2 (11:19→17:59)
[2018-02-23] MEDS: busPIRone 5 MG TABLET. PO SCH ×2 (11:19→17:57)
[2018-02-23 16:44] VITALS: BP 138/86
--- NOTE | 2018-02-23 19:48 | PN ---
DATE: 02/21/2018 PSYCHIATRIC PROGRESS NOTE This late entry of 02/21/2018, covers elements not covered in my initial note. SUBJECTIVE: I met with the patient in the evening, staffed at a treatment team meeting with the entire team in the morning and the patient attended this lengthy treatment team meeting. Reviewed her history and desire to be returning to the assisted living and social service staff is addressing this including transportation issues. She is sleeping an average of 8-9 hours. Appetite 100%. Denies active suicidal ideation. REVIEW OF SYSTEMS: Ambulation impaired with walker. No CV, , pulmonary, eye system symptoms on review. MENTAL STATUS EXAM: Reasonably oriented. Speech is coherent, abstraction fair, computation impaired, language function intact. Mood and affect showing improvement, still anxious, slightly labile. LABORATORY DATA: Reviewed. IMPRESSION: Major depressive disorder, in partial remission. Rest unchanged. PLAN: No change from initial note. MAN Allison STILES MD DR: KATHERINE/noel JOB#: [id number] / [id number]
[2018-02-23] MEDS: SIMVASTATIN 20 MG TABLET PO SCH (20:07)
[2018-02-23] MEDS: clonazePAM 1 MG TABLET PO SCH (20:07)
[2018-02-23] MEDS: GABAPENTIN 400 MG CAPSULE. PO SCH (20:07)
--- NOTE | 2018-02-23 23:06 | PDOC ---
Exam Note: Juan C Note: Please also refer to the separate dictated note~for this date of service dictated separately.~Patient seen individually. Discussed the patient with Nursing staff reviewed the chart.~Reviewed interim history and current functioning. Reviewed vital signs,~Labs/ Radiology~and current medications noted below. Continue current treatment with the changes noted in the dictated addendum note Assessment: Vital Signs: Vital Signs Date Time Temp Pulse Resp B/P (MAP) Pulse Ox O2 Delivery O2 Flow Rate FiO2 02/23/18 16:44 98.2 74 20 138/86 (103) 96 Room Air I&O Intake and Output 02/23/18 07:00 Intake Total 840 ml Balance 840 ml Intake Oral 840 ml Labs: Laboratory Tests Test 02/23/18 07:19 Glucose (Fingerstick) 140 mg/dL (70-99) H Current Medications: Meds: Current Medications Acetaminophen (Tylenol) 325 mg PRN Q4HRS PRN PO PAIN / TEMP Last administered on 02/23/18at 17:59; Start 02/16/18 at 16:15 Baclofen (Lioresal) 10 mg DAILY PO Last administered on 02/23/18at 10:32; Start 02/17/18 at 09:00 Cetirizine HCl (ZyrTEC) 10 mg DAILY PO Last administered on 02/23/18at 10:33; Start 02/17/18 at 09:00 Clonazepam (KlonoPIN) 1 mg QHS PO Last administered on 02/23/18at 20:07; Start 02/16/18 at 21:00 Duloxetine HCl (Cymbalta) 60 mg DAILY PO Last administered on 02/23/18at 10:33 ; Start 02/17/18 at 09:00 Non-Formulary Medication (Estradiol/ Norethindrone Acet (Activella 0.5-0.1 Mg Tablet)) 1 tab DAILY PO ; Start 02/17/18 at 09:00; Status UNV Fluticasone Propionate (Flonase) 2 spray BID NS Last administered on at 20:08; Start 02/16/18 at 21:00 Gabapentin (Neurontin) 600 mg TID PO ; Start 02/16/18 at 21:00; Stop 02/16/18 at 21:00; Status DC Gabapentin (Neurontin) 800 mg QHS PO Last administered on 02/23/18 20:07; Start 02/16/18 at 21:00 Levetiracetam (Keppra) 1,500 mg BID PO Last administered on 02/23/18 20:07; Start 02/16/18 at 21:00 Meclizine HCl (Antivert) 25 mg BID PO Last administered on 02/23/18 20:07; Start 02/16/18 at 21:00 Meloxicam (Mobic) 15 mg DAILY PO Last administered on 02/23/18 10:33; Start 02/17/18 at 09:00 Metformin HCl (Glucophage Xr) 1,000 mg DAILYWBKFT PO Last administered on 02/23 10:32; Start 02/17/18 at 08:00 Pantoprazole Sodium (Protonix) 40 mg DAILYAC PO Last administered on 10:35; Start 02/17/18 at 07:30 Polyethylene Glycol (miraLAX) 17 gm PRN DAILY PRN PO CONSTIPATION; Start 02/16 at 17:00 Ropinirole HCl (Requip) 1.5 mg TID PO Last administered on 02/23/18 20:08; Start 02/16/18 at 21:00 Simvastatin (Zocor) 20 mg HS PO Last administered on 02/23/18 20:07; Start 02/16/18 at 21:00 Linagliptin (Tradjenta) 5 mg DAILY PO Last administered on 02/23/18 10:33; Start 02/17/18 at 09:00 Topiramate (Topamax) 50 mg DAILY PO Last administered on 02/23/18 10:34; Start 02/17/18 at 09:00 Gabapentin (Neurontin) 600 mg TID@0900,1300,1700 PO Last administered on 17:57; Start 02/16/18 at 17:00 Multi-Ingredient Ointment (Analgesic [place]) 1 iesha PRN QID PRN TP MUSCLE PAIN; Start 02/16/18 at 17:15 Al Hydroxide/Mg Hydroxide (Mylanta Plus Xs) 15 ml PRN AFTMEALHC PRN PO DYSPEPSIA Last administered on 02/23/18at 13:57; Start 02/16/18 at 17:15 Magnesium Hydroxide (Milk Of Magnesia) 2,400 mg PRN QHS PRN PO CONSTIPATION; Start 02/16/18 at 17:15 Buspirone HCl (Buspar) 5 mg BID@0900,1700 PO Last administered on 02/23/18at 17 :57; Start 02/19/18 at 17:00 Active Scripts Active Reported Miralax (Polyethylene Glycol 3350) 17 Gm Powd.pack 17 Gm PO PRN DAILY PRN Tylenol (Acetaminophen) 325 Mg Tablet 325 Mg PO PRN Q4HRS PRN Topiramate 50 Mg Tablet 50 Mg PO DAILY Januvia (Sitagliptin Phosphate) 50 Mg Tablet 50 Mg PO DAILY Simvastatin 20 Mg Tablet 20 Mg PO HS Requip (Ropinirole Hcl) 0.5 Mg Tablet 1.5 Mg PO TID Prilosec Otc (Omeprazole Magnesium) 20 Mg Tablet.dr 40 Mg PO DAILY Metformin Hcl Er (Metformin Hcl) 500 Mg Tab.er.24h 1,000 Mg PO DAILYWBKFT Meloxicam 15 Mg Tablet 15 Mg PO DAILY Meclizine Hcl 25 Mg Tablet 25 Mg PO BID Levetiracetam 1,000 Mg Tablet 1,500 Mg PO BID Gabapentin 600 Mg Tablet 600 Mg PO TID Gabapentin 800 Mg Tablet 800 Mg PO HS Flonase Allergy Relief (Fluticasone Propionate) 9.9 Ml [place].susp 2 Sprays NS BID Activella 0.5-0.1 Mg Tablet (Estradiol/Norethindrone Acet) 1 Each Tablet 1 Tab PO DAILY Cymbalta (Duloxetine Hcl) 60 Mg Capsule.dr 60 Mg PO DAILY Clonazepam 1 Mg Tablet 1 Mg PO HS Zyrtec (Cetirizine Hcl) 10 Mg Capsule 10 Mg PO DAILY Baclofen 10 Mg Tablet 10 Mg PO DAILY I have reviewed the current psychotropics carefully including drug interactions. Risk benefit ratio favors no change other than as noted in my dictated progress note. Diagnosis: Problems: (1) Anxiety disorder (2) Major depressive disorder, recurrent episode (3) Impulse control disorder NUBIA STILES MD Feb 23, 2018 23:06
--- NOTE | 2018-02-23 23:57 | PN ---
DATE: 02/23/2018 This is a late entry for 02/22/2018 and covers elements not covered in my initial note. SUBJECTIVE: I met with the patient in her room. The patient slept 8 hours previous evening. She has been quiet, withdrawn, spends much time in her room, but does come out to the day room. REVIEW OF SYSTEMS: Ambulation impaired with walker. No CV, , pulmonary, eye, ENT system symptoms on review. MENTAL STATUS EXAM: Reasonably oriented. Speech is coherent, abstraction fair, computation impaired, language function intact. Mood and affect, somewhat depressed, anxious, but improved. LABORATORY DATA: Reviewed. No suicidal ideation. IMPRESSION: Major depressive disorder, in partial remission; anxiety disorder, unspecified. PLAN: No change from initial note. NUBIA STILES MD DR: KATHERINE/noel JOB#: [id number] / [id number]
[2018-02-24] MEDS: ACETAMINOPHEN 325 MG TABLET PO PRN ×2 (03:20→15:22)
[2018-02-24 06:08] VITALS: BP 124/77
[2018-02-24] MEDS: MECLIZINE 12.5 MG TABLET. PO SCH ×2 (08:18→19:56)
[2018-02-24] MEDS: busPIRone 5 MG TABLET. PO SCH ×2 (08:19→17:05)
[2018-02-24] MEDS: GABAPENTIN 300 MG CAPSULE. PO SCH ×3 (08:19→17:05)
[2018-02-24] MEDS: levETIRAcetam 500 MG TABLET PO SCH ×2 (08:19→19:54)
[2018-02-24] MEDS: rOPINIRole 1 MG TABLET. PO SCH ×3 (08:19→19:56)
[2018-02-24] MEDS: metFORMIN XR 500 MG TAB.ER.24H PO SCH (08:19)
[2018-02-24] MEDS: PANTOPRAZOLE 40 MG TABLET. PO SCH (08:20)
[2018-02-24] MEDS: BACLOFEN 10 MG TABLET PO SCH (08:20)
[2018-02-24] MEDS: TOPIRAMATE 25 MG TABLET. PO SCH (08:20)
[2018-02-24] MEDS: LINAGLIPTIN 5 MG TABLET PO SCH (08:20)
[2018-02-24] MEDS: DULoxetine HCL 60 MG CAPSULE.DR PO SCH (08:20)
[2018-02-24] MEDS: MELOXICAM 15 MG TABLET. PO SCH (08:20)
[2018-02-24] MEDS: CETIRIZINE HCL 10 MG TABLET PO SCH (08:20)
[2018-02-24] MEDS: FLUTICASONE 50MCG/NASAL SPRAY 16GM BOTTLE. NS SCH ×2 (08:21→19:56)
[2018-02-24] MEDS: ESTRADIOL PO SCH (09:00)
[2018-02-24] MEDS: NORETHINDRONE ACET PO SCH (09:00)
--- NOTE | 2018-02-24 12:55 | PN ---
DATE: 02/23/2018 This late entry, 02/23/2018, covers elements not covered in my initial note. SUBJECTIVE: I met with the patient in the evening in her room. The patient remains somewhat withdrawn, spends much time in her room, but does come out to groups. REVIEW OF SYSTEMS: No CV, , pulmonary, eye system symptoms on review. Gait unsteady with walker. Slept 7-1/4 hours previous evening. Complains of toothache. We do not have a dentist. We will defer to Dr. Lea. MENTAL STATUS EXAM: Reasonably oriented. Speech coherent, abstraction fair, computation impaired, language function intact, attention span short. Mood and affect still somewhat anxious, dysphoric, but improved. LABORATORY DATA: Reviewed. IMPRESSION: Major depressive disorder, recurrent; anxiety disorder, unspecified. Rest unchanged. PLAN: No change from initial note with transition back to [place] in [place] on Sunday. MAN Allison STILES MD DR: KATHERINE/noel JOB#: [id number] / [id number]
[2018-02-24 16:34] VITALS: BP 118/72
[2018-02-24] MEDS: clonazePAM 1 MG TABLET PO SCH (19:54)
[2018-02-24] MEDS: SIMVASTATIN 20 MG TABLET PO SCH (19:54)
[2018-02-24] MEDS: GABAPENTIN 400 MG CAPSULE. PO SCH (19:54)
--- NOTE | 2018-02-24 23:08 | PDOC ---
Exam Note: Juan C Note: Please also refer to the separate dictated note~for this date of service dictated separately.~Patient seen individually. Discussed the patient with Nursing staff reviewed the chart.~Reviewed interim history and current functioning. Reviewed vital signs,~Labs/ Radiology~and current medications noted below. Continue current treatment with the changes noted in the dictated addendum note Assessment: Vital Signs: Vital Signs Date Time Temp Pulse Resp B/P (MAP) Pulse Ox O2 Delivery O2 Flow Rate FiO2 02/24/18 16:34 97.8 70 20 118/72 (87) 97 Room Air I&O Intake and Output 02/24/18 07:00 Intake Total 840 ml Balance 840 ml Intake Oral 840 ml # Bowel Movements 1 Labs: Laboratory Tests Test 02/24/18 07:39 Glucose (Fingerstick) 139 mg/dL (70-99) H Current Medications: Meds: Current Medications Acetaminophen (Tylenol) 325 mg PRN Q4HRS PRN PO PAIN / TEMP Last administered on 02/24/18at 15:22; Start 02/16/18 at 16:15 Baclofen (Lioresal) 10 mg DAILY PO Last administered on 02/24/18at 08:20; Start 02/17/18 at 09:00 Cetirizine HCl (ZyrTEC) 10 mg DAILY PO Last administered on 02/24/18at 08:20; Start 02/17/18 at 09:00 Clonazepam (KlonoPIN) 1 mg QHS PO Last administered on 02/24/18at 19:54; Start 02/16/18 at 21:00 Duloxetine HCl (Cymbalta) 60 mg DAILY PO Last administered on 02/24/18at 08:20 ; Start 02/17/18 at 09:00 Non-Formulary Medication (Estradiol/ Norethindrone Acet (Activella 0.5-0.1 Mg Tablet)) 1 tab DAILY PO ; Start 02/17/18 at 09:00; Status UNV Fluticasone Propionate (Flonase) 2 spray BID NS Last administered on at 19:56; Start 02/16/18 at 21:00 Gabapentin (Neurontin) 600 mg TID PO ; Start 02/16/18 at 21:00; Stop 02/16/18 at 21:00; Status DC Gabapentin (Neurontin) 800 mg QHS PO Last administered on 02/24/18 19:54; Start 02/16/18 at 21:00 Levetiracetam (Keppra) 1,500 mg BID PO Last administered on 02/24/18 19:54; Start 02/16/18 at 21:00 Meclizine HCl (Antivert) 25 mg BID PO Last administered on 02/24/18 19:56; Start 02/16/18 at 21:00 Meloxicam (Mobic) 15 mg DAILY PO Last administered on 02/24/18 08:20; Start 02/17/18 at 09:00 Metformin HCl (Glucophage Xr) 1,000 mg DAILYWBKFT PO Last administered on 02/24 08:19; Start 02/17/18 at 08:00 Pantoprazole Sodium (Protonix) 40 mg DAILYAC PO Last administered on 08:20; Start 02/17/18 at 07:30 Polyethylene Glycol (miraLAX) 17 gm PRN DAILY PRN PO CONSTIPATION; Start 02/16 at 17:00 Ropinirole HCl (Requip) 1.5 mg TID PO Last administered on 02/24/18 19:56; Start 02/16/18 at 21:00 Simvastatin (Zocor) 20 mg HS PO Last administered on 02/24/18 19:54; Start 02/16/18 at 21:00 Linagliptin (Tradjenta) 5 mg DAILY PO Last administered on 02/24/18 08:20; Start 02/17/18 at 09:00 Topiramate (Topamax) 50 mg DAILY PO Last administered on 02/24/18 08:20; Start 02/17/18 at 09:00 Gabapentin (Neurontin) 600 mg TID@0900,1300,1700 PO Last administered on 17:05; Start 02/16/18 at 17:00 Multi-Ingredient Ointment (Analgesic [place]) 1 iesha PRN QID PRN TP MUSCLE PAIN; Start 02/16/18 at 17:15 Al Hydroxide/Mg Hydroxide (Mylanta Plus Xs) 15 ml PRN AFTMEALHC PRN PO DYSPEPSIA Last administered on 02/23/18at 13:57; Start 02/16/18 at 17:15 Magnesium Hydroxide (Milk Of Magnesia) 2,400 mg PRN QHS PRN PO CONSTIPATION; Start 02/16/18 at 17:15 Buspirone HCl (Buspar) 5 mg BID@0900,1700 PO Last administered on 02/24/18at 17 :05; Start 02/19/18 at 17:00 Active Scripts Active Reported Miralax (Polyethylene Glycol 3350) 17 Gm Powd.pack 17 Gm PO PRN DAILY PRN Tylenol (Acetaminophen) 325 Mg Tablet 325 Mg PO PRN Q4HRS PRN Topiramate 50 Mg Tablet 50 Mg PO DAILY Januvia (Sitagliptin Phosphate) 50 Mg Tablet 50 Mg PO DAILY Simvastatin 20 Mg Tablet 20 Mg PO HS Requip (Ropinirole Hcl) 0.5 Mg Tablet 1.5 Mg PO TID Prilosec Otc (Omeprazole Magnesium) 20 Mg Tablet.dr 40 Mg PO DAILY Metformin Hcl Er (Metformin Hcl) 500 Mg Tab.er.24h 1,000 Mg PO DAILYWBKFT Meloxicam 15 Mg Tablet 15 Mg PO DAILY Meclizine Hcl 25 Mg Tablet 25 Mg PO BID Levetiracetam 1,000 Mg Tablet 1,500 Mg PO BID Gabapentin 600 Mg Tablet 600 Mg PO TID Gabapentin 800 Mg Tablet 800 Mg PO HS Flonase Allergy Relief (Fluticasone Propionate) 9.9 Ml [place].susp 2 Sprays NS BID Activella 0.5-0.1 Mg Tablet (Estradiol/Norethindrone Acet) 1 Each Tablet 1 Tab PO DAILY Cymbalta (Duloxetine Hcl) 60 Mg Capsule.dr 60 Mg PO DAILY Clonazepam 1 Mg Tablet 1 Mg PO HS Zyrtec (Cetirizine Hcl) 10 Mg Capsule 10 Mg PO DAILY Baclofen 10 Mg Tablet 10 Mg PO DAILY I have reviewed the current psychotropics carefully including drug interactions. Risk benefit ratio favors no change other than as noted in my dictated progress note. Diagnosis: Problems: (1) Anxiety disorder (2) Major depressive disorder, recurrent episode (3) Impulse control disorder NUBIA STILES MD Feb 24, 2018 23:08
[2018-02-25] MEDS ORDERED: MAG355OR17 PO (02:50)
[2018-02-25] MEDS ORDERED: METH29OI TP (02:51)
[2018-02-25] MEDS ORDERED: MAGN2400 PO (02:51)
[2018-02-25] MEDS ORDERED: BUSP5TAB PO (02:52)
[2018-02-25 06:08] VITALS: BP 131/83
[2018-02-25] MEDS: GABAPENTIN 300 MG CAPSULE. PO SCH ×2 (07:43→12:00)
[2018-02-25] MEDS: MECLIZINE 12.5 MG TABLET. PO SCH (07:43)
[2018-02-25] MEDS: TOPIRAMATE 25 MG TABLET. PO SCH (07:43)
[2018-02-25] MEDS: rOPINIRole 1 MG TABLET. PO SCH ×2 (07:44→12:00)
[2018-02-25] MEDS: DULoxetine HCL 60 MG CAPSULE.DR PO SCH (07:45)
[2018-02-25] MEDS: BACLOFEN 10 MG TABLET PO SCH (07:45)
[2018-02-25] MEDS: CETIRIZINE HCL 10 MG TABLET PO SCH (07:45)
[2018-02-25] MEDS: levETIRAcetam 500 MG TABLET PO SCH (07:45)
[2018-02-25] MEDS: PANTOPRAZOLE 40 MG TABLET. PO SCH (07:45)
[2018-02-25] MEDS: LINAGLIPTIN 5 MG TABLET PO SCH (07:45)
[2018-02-25] MEDS: metFORMIN XR 500 MG TAB.ER.24H PO SCH (07:46)
[2018-02-25] MEDS: busPIRone 5 MG TABLET. PO SCH (07:46)
[2018-02-25] MEDS: FLUTICASONE 50MCG/NASAL SPRAY 16GM BOTTLE. NS SCH (09:00)
[2018-02-25] MEDS: NORETHINDRONE ACET PO SCH (09:00)
[2018-02-25] MEDS: ESTRADIOL PO SCH (09:00)
[2018-02-25] MEDS: MELOXICAM 15 MG TABLET. PO SCH (12:00)
--- NOTE | 2018-02-25 18:35 | PDOC ---
Exam Note: Juan C Note: Please also refer to the separate dictated note~for this date of service dictated separately.~Patient seen individually. Discussed the patient with Nursing staff reviewed the chart.~Reviewed interim history and current functioning. Reviewed vital signs,~Labs/ Radiology~and current medications noted below. Continue current treatment with the changes noted in the dictated addendum note Assessment: Vital Signs: Vital Signs Date Time Temp Pulse Resp B/P (MAP) Pulse Ox O2 Delivery O2 Flow Rate FiO2 02/25/18 06:08 97.6 77 18 131/83 (99) 94 Room Air I&O Intake and Output 02/25/18 07:00 Intake Total 760 ml Balance 760 ml Intake Oral 760 ml # Bowel Movements 1 Labs: Laboratory Tests Test 02/25/18 07:56 Glucose (Fingerstick) 140 mg/dL (70-99) H Current Medications: Meds: Current Medications Acetaminophen (Tylenol) 325 mg PRN Q4HRS PRN PO PAIN / TEMP Last administered on 02/24/18at 15:22; Start 02/16/18 at 16:15; Stop 02/25/18 at 14:28; Status DC Baclofen (Lioresal) 10 mg DAILY PO Last administered on 02/25/18at 07:45; Start 02/17/18 at 09:00; Stop 02/25/18 at 14:28; Status DC Cetirizine HCl (ZyrTEC) 10 mg DAILY PO Last administered on 02/25/18at 07:45; Start 02/17/18 at 09:00; Stop 02/25/18 at 14:28; Status DC Clonazepam (KlonoPIN) 1 mg QHS PO Last administered on 02/24/18at 19:54; Start 02/16/18 at 21:00; Stop 02/25/18 at 14:28; Status DC Duloxetine HCl (Cymbalta) 60 mg DAILY PO Last administered on 02/25/18at 07:45 ; Start 02/17/18 at 09:00; Stop 02/25/18 at 14:28; Status DC Non-Formulary Medication (Estradiol/ Norethindrone Acet (Activella 0.5-0.1 Mg Tablet)) 1 tab DAILY PO ; Start 02/17/18 at 09:00; Stop 02/25/18 at 14:28; Status DC Fluticasone Propionate (Flonase) 2 spray BID NS Last administered on at 09:00; Start 02/16/18 at 21:00; Stop 02/25/18 at 14:28; Status DC Gabapentin (Neurontin) 600 mg TID PO ; Start 02/16/18 at 21:00; Stop 02/16/18 at 21:00; Status DC Gabapentin (Neurontin) 800 mg QHS PO Last administered on 02/24/18at 19:54; Start 02/16/18 at 21:00; Stop 02/25/18 at 14:28; Status DC Levetiracetam (Keppra) 1,500 mg BID PO Last administered on 02/25/18at 07:45; Start 02/16/18 at 21:00; Stop 02/25/18 at 14:28; Status DC Meclizine HCl (Antivert) 25 mg BID PO Last administered on 02/25/18at 07:43; Start 02/16/18 at 21:00; Stop 02/25/18 at 14:28; Status DC Meloxicam (Mobic) 15 mg DAILY PO Last administered on 02/25/18at 12:00; Start 02/17/18 at 09:00; Stop 02/25/18 at 14:28; Status DC Metformin HCl (Glucophage Xr) 1,000 mg DAILYWBKFT PO Last administered on 02/25at 07:46; Start 02/17/18 at 08:00; Stop 02/25/18 at 14:28; Status DC Pantoprazole Sodium (Protonix) 40 mg DAILYAC PO Last administered on at 07:45; Start 02/17/18 at 07:30; Stop 02/25/18 at 14:28; Status DC Polyethylene Glycol (miraLAX) 17 gm PRN DAILY PRN PO CONSTIPATION; Start 02/16 at 17:00; Stop 02/25/18 at 14:28; Status DC Ropinirole HCl (Requip) 1.5 mg TID PO Last administered on 02/25/18at 12:00; Start 02/16/18 at 21:00; Stop 02/25/18 at 14:28; Status DC Simvastatin (Zocor) 20 mg HS PO Last administered on 02/24/18at 19:54; Start 02/16/18 at 21:00; Stop 02/25/18 at 14:28; Status DC Linagliptin (Tradjenta) 5 mg DAILY PO Last administered on 02/25/18at 07:45; Start 02/17/18 at 09:00; Stop 02/25/18 at 14:28; Status DC Topiramate (Topamax) 50 mg DAILY PO Last administered on 02/25/18at 07:43; Start 02/17/18 at 09:00; Stop 02/25/18 at 14:28; Status DC Gabapentin (Neurontin) 600 mg TID@0900,1300,1700 PO Last administered on at 12:00; Start 02/16/18 at 17:00; Stop 02/25/18 at 14:28; Status DC Multi-Ingredient Ointment (Analgesic [place]) 1 pearl PRN QID PRN TP MUSCLE PAIN; Start 02/16/18 at 17:15; Stop 02/25/18 at 14:28; Status DC Al Hydroxide/Mg Hydroxide (Mylanta Plus Xs) 15 ml PRN AFTMEALHC PRN PO DYSPEPSIA Last administered on 02/23/18at 13:57; Start 02/16/18 at 17:15; Stop 02/25/18 at 14:28; Status DC Magnesium Hydroxide (Milk Of Magnesia) 2,400 mg PRN QHS PRN PO CONSTIPATION; Start 02/16/18 at 17:15; Stop 02/25/18 at 14:28; Status DC Buspirone HCl (Buspar) 5 mg BID@0900,1700 PO Last administered on 02/25/18at 07 :46; Start 02/19/18 at 17:00; Stop 02/25/18 at 14:28; Status DC Active Scripts Active Reported Buspirone Hcl 5 Mg Tablet 5 Mg PO BID@0900,1700 Analgesic [place] (Methyl Salicylate/Menthol) 28 Gm Oint...g. 1 [place] TP PRN QID PRN Milk Of Magnesia (Magnesium Hydroxide) 2,400 Mg/10 Ml Oral.susp 2,400 Mg PO PRN QHS PRN Advanced Antacid Liquid (Mag Hydrox/Al Hydrox/Simeth) 355 Ml Oral.susp 15 Ml PO PRN AFTMEALHC PRN Miralax (Polyethylene Glycol 3350) 17 Gm Powd.pack 17 Gm PO PRN DAILY PRN Tylenol (Acetaminophen) 325 Mg Tablet 325 Mg PO PRN Q4HRS PRN Topiramate 50 Mg Tablet 50 Mg PO DAILY Januvia (Sitagliptin Phosphate) 50 Mg Tablet 50 Mg PO DAILY Simvastatin 20 Mg Tablet 20 Mg PO HS Requip (Ropinirole Hcl) 0.5 Mg Tablet 1.5 Mg PO TID Prilosec Otc (Omeprazole Magnesium) 20 Mg Tablet.dr 40 Mg PO DAILY Metformin Hcl Er (Metformin Hcl) 500 Mg Tab.er.24h 1,000 Mg PO DAILYWBKFT Meloxicam 15 Mg Tablet 15 Mg PO DAILY Meclizine Hcl 25 Mg Tablet 25 Mg PO BID Levetiracetam 1,000 Mg Tablet 1,500 Mg PO BID Gabapentin 600 Mg Tablet 600 Mg PO TID@0900,1300,1700 Gabapentin 800 Mg Tablet 800 Mg PO HS Flonase Allergy Relief (Fluticasone Propionate) 9.9 Ml [place].susp 2 Sprays NS BID Activella 0.5-0.1 Mg Tablet (Estradiol/Norethindrone Acet) 1 Each Tablet 1 Tab PO DAILY Cymbalta (Duloxetine Hcl) 60 Mg Capsule.dr 60 Mg PO DAILY Clonazepam 1 Mg Tablet 1 Mg PO HS Zyrtec (Cetirizine Hcl) 10 Mg Capsule 10 Mg PO DAILY Baclofen 10 Mg Tablet 10 Mg PO DAILY I have reviewed the current psychotropics carefully including drug interactions. Risk benefit ratio favors no change other than as noted in my dictated progress note. Diagnosis: Problems: (1) Impulse control disorder (2) Major depressive disorder, recurrent episode (3) Anxiety disorder NUBIA STILES MD Feb 25, 2018 18:35
--- NOTE | 2018-02-25 20:59 | PN ---
DATE: 02/24/2018 PSYCHIATRIC PROGRESS NOTE This late entry 02/24/2018 covers elements not covered in my initial note. SUBJECTIVE: I met with the patient at length in her room. She slept 6-3/4 hours previous evening, has been somewhat withdrawn, excited to be discharged back to her facility on Sunday, processed this with her. REVIEW OF SYSTEMS: Ambulation impaired with walker. No CV, , pulmonary, eye system symptoms on review. MENTAL STATUS EXAM: Reasonably oriented. Speech is coherent, abstraction fair, computation impaired, language function intact, attention span short. Mood and affect showing improvement. No suicidal ideation. LABORATORY DATA: Reviewed. IMPRESSION: Major depressive disorder, recurrent, in partial remission; anxiety disorder, unspecified; seizure disorder. PLAN: Continue psychotropics from initial note. Possible transition to half-way 02/25/2018. MAN Allison STILES MD DR: KATHERINE/noel JOB#: [id number] / [id number]
--- NOTE | 2018-02-26 19:24 | DS ---
DATE OF DISCHARGE: 02/25/2018 DISCHARGE SUMMARY/PSYCHIATRIC PROGRESS NOTE This late entry 02/25/2018 covers elements not covered in my initial note. REASON FOR ADMISSION: Please refer to the admission history for details. Briefly, the patient is a 67-year-old female referred to us from [facility] in [place], [place] by her primary care physician after she threatened suicide with a plan to cut herself. She has been increasingly depressed, anxious, obsessive, ruminative, picking at her face. She had failed outpatient psychiatric interventions resulting in this referral. SIGNIFICANT FINDINGS AND CLINICAL COURSE: Following admission, the patient was seen daily individually by myself from a psychiatric standpoint, followed medically per Dr. Lea/Dr. Melgar. She was quite depressed, anxious, fixated on being discharged, minimized most of the symptoms prompting admission. She was quite obsessive. Adjustments were made in her psychotropics. She seemed to respond to a combination of Cymbalta 60 mg a day, maintained on Keppra 1500 b.i.d. for her seizures, Klonopin 1 mg at bedtime, BuSpar added and adjusted to 5 mg twice a day. Gradually, mood appeared to improve. She denied suicidal ideation, was still anxious, obsessive, but less so than before. REVIEW OF SYSTEMS: Prior to discharge on 02/25/2018, no CV, , pulmonary, eye, ENT system symptoms on review. Gait unsteady with walker. MENTAL STATUS EXAM: Oriented to herself and situation. Speech coherent, abstraction fair, computation impaired, language function intact, attention span short. Mood and affect remains somewhat dysphoric. FINAL DIAGNOSES: Major depressive disorder, recurrent, in partial remission; anxiety disorder, unspecified; impulse control disorder, unspecified. Rest unchanged from admission. DISCHARGE MEDICATIONS: Please refer to the [facility]. DISCHARGE INSTRUCTIONS: Outpatient psychiatric and medical followup at the retirement. Time for discharge day management greater than 30 minutes. NUBIA STILES MD DR: KATHERINE/noel JOB#: [id number] / [id number]
== END 2018-02-25 14:27 | DRG 885 ==
LOC: GEROPSY 15:05
PROVIDERS: ADMIT Psychiatry & Neurology Psychiatry; ATTEND Psychiatry & Neurology Psychiatry
DX: F33.9 Major depressive disorder, recurrent, unspecified (principal); F34.1 Dysthymic disorder; F41.1 Generalized anxiety disorder; E11.42 Type 2 diabetes mellitus with diabetic polyneuropathy; E78.5 Hyperlipidemia, unspecified; F03.90 Unspecified dementia, unspecified severity, without behavioral disturbance, psychotic disturbance, mood disturbance, and anxiety; G89.29 Other chronic pain; F63.9 Impulse disorder, unspecified; G40.909 Epilepsy, unspecified, not intractable, without status epilepticus; G25.81 Restless legs syndrome; G47.30 Sleep apnea, unspecified; I10 Essential (primary) hypertension; K21.9 Gastro-esophageal reflux disease without esophagitis; M06.9 Rheumatoid arthritis, unspecified; M79.7 Fibromyalgia; N28.9 Disorder of kidney and ureter, unspecified; Z55.9 Problems related to education and literacy, unspecified; Z80.3 Family history of malignant neoplasm of breast; Z82.0 Family history of epilepsy and other diseases of the nervous system; Z82.3 Family history of stroke; Z82.5 Family history of asthma and other chronic lower respiratory diseases; Z79.899 Other long term (current) drug therapy; Z96.642 Presence of left artificial hip joint; Z98.41 Cataract extraction status, right eye; Z98.42 Cataract extraction status, left eye; F33.41 Major depressive disorder, recurrent, in partial remission
CPT/HCPCS: 36415; 80053; 80061; 82306; 82607; 82947; 83036; 83540; 83550; 83735; 84436; 84443; 84480; 85025; 86592; J8597